=== PATIENT | female | born 1955 | race Caucasian/White ===

== ENCOUNTER 2020-11-18 23:09 | Inpatient (IN) | payer BC, OTHER ==
[~2020-11-18] VITALS: Ht 165.1 cm; Wt 73.0 kg
[~2020-11-18 23:09] MED LIST: APAP/HYDROCODON1 T13 PO; ATENOLOL25 MG PO; CIPRO500 MG PO; COL100 PO; FERROUS SULFAT325 M2 PO; FLA500 PO; KEFLEX250 MG PO; LAC PO; MIRUD PO; NAP375 PO; PYR100 PO; TYLENOL325 MG PO; [UNRECOGNIZED DRUG - OTHER] PO
[2020-11-18 23:19] VITALS: Ht 165.1 cm; Wt 73.0 kg
[2020-11-19 01:10] LABS: ALBUMIN 3.9 g/dL (3.4-5.0); BILIRUBIN TOTAL 1.4 mg/dL (0.20-1.00); CALCIUM 9.7 mg/dL (8.5-10.1); CREATININE SERUM 1.2 mg/dL (0.6-1.0); POTASSIUM SERUM 3.9 mmol/L (3.5-5.1); TOTAL PROTEIN, SERUM 8.1 g/dL (6.4-8.2)
[2020-11-19 01:11] LABS: BASOPHIL % 1.3 % (0.2-1.3); PLATELET COUNT 277 x10^3mcL (179-408)
[2020-11-19 04:28] LABS: microscopic required? NO
[2020-11-19 04:39] LABS: UA SPECIFIC GRAVITY <=1.005 (1.005-1.035); urine erythrocyte NEGATIVE (NEGATIVE)
[2020-11-19 04:41] LABS: CALCIUM 8.6 mg/dL (8.5-10.1); CARBON DIOXIDE 28.2 mmol/L (21-32); CREATININE SERUM 1.2 mg/dL (0.6-1.0)
[2020-11-19 04:56] LABS: AMPHETAMINE QUAL UR NONE DETECTED (See below)
[2020-11-19 15:05] VITALS: BP 130/68
[2020-11-19 21:16] VITALS: BP 113/71
[2020-11-20 06:12] VITALS: BP 140/85
[2020-11-20 07:21] LABS: PLATELET COUNT 223 x10^3mcL (179-408); RED CELL DISTRIBUTION WIDTH 13.2 % (12.3-17.7)
[2020-11-20 07:38] LABS: CALCIUM 8.3 mg/dL (8.5-10.1); CARBON DIOXIDE 25.1 mmol/L (21-32); CHLORIDE SERUM 107 mmol/L (98-107); CREATININE SERUM 0.5 mg/dL (0.6-1.0); GFR1 > 60 mL/min; GLUCOSE SERUM 103 mg/dL (74-106); MAGNESIUM 1.6 mg/dL (1.8-2.4); PHOSPHOROUS 2.5 mg/dL (2.5-4.9); SODIUM SERUM 142 mmol/L (136-145)
[2020-11-20 07:57] LABS: POTASSIUM SERUM 2.9 mmol/L (3.5-5.1)
[2020-11-20 08:38] VITALS: BP 138/79
[2020-11-20 12:57] VITALS: BP 142/96
[2020-11-20 17:06] VITALS: BP 140/83
[2020-11-20 19:59] VITALS: BP 129/68
[2020-11-21 05:27] VITALS: BP 108/61
[2020-11-21 07:14] LABS: BASOPHIL % 1.1 % (0.2-1.3); PLATELET COUNT 197 x10^3mcL (179-408); RED CELL DISTRIBUTION WIDTH 13.3 % (12.3-17.7)
[2020-11-21 07:48] VITALS: BP 147/86
[2020-11-21 08:00] LABS: CALCIUM 8.9 mg/dL (8.5-10.1); CARBON DIOXIDE 22.2 mmol/L (21-32); CHLORIDE SERUM 109 mmol/L (98-107); CREATININE SERUM 0.5 mg/dL (0.6-1.0); GFR1 > 60 mL/min; GLUCOSE SERUM 138 mg/dL (74-106); POTASSIUM SERUM 3.9 mmol/L (3.5-5.1); SODIUM SERUM 140 mmol/L (136-145)
[2020-11-21] MEDS ORDERED: LIPI20 PO (08:51)
[2020-11-21] MEDS ORDERED: BAY PO (08:51)
[2020-11-21] MEDS ORDERED: LANTI SQ (08:52)
[2020-11-21] MEDS ORDERED: GLIPIZIDE XL5 M2 PO (08:53)
[2020-11-21] MEDS ORDERED: ACCU-CHEK COMB1 EACH MC (08:53)
[2020-11-21 10:30] VITALS: BP 140/83
[2020-11-21 11:41] VITALS: BP 145/82
== END 2020-11-21 13:55 | disposition home or self-care (01) | DRG 682 ==
LOC: ED 23:09 → DU 11-19 02:25 → IC 11-19 02:25 → DU 11-19 08:00
PROVIDERS: Family Medicine; Student in an Organized Health Care Education/Training Program; ADMIT Internal Medicine; ATTEND Internal Medicine
DX: N17.0 Acute kidney failure with tubular necrosis (principal); E11.00 Type 2 diabetes mellitus with hyperosmolarity without nonketotic hyperglycemic-hyperosmolar coma (NKHHC); E87.1 Hypo-osmolality and hyponatremia; Z88.0 Allergy status to penicillin; I10 Essential (primary) hypertension; Z90.49 Acquired absence of other specified parts of digestive tract; Z20.822 Contact with and (suspected) exposure to COVID-19; E86.0 Dehydration; E11.40 Type 2 diabetes mellitus with diabetic neuropathy, unspecified; K59.00 Constipation, unspecified; M19.90 Unspecified osteoarthritis, unspecified site
CPT/HCPCS: 82962; 97116-GP; 97530-GP; G0378; J1815; J3480; J7030; U0003